=== PATIENT | female | born 1965 | race Caucasian/White ===

== ENCOUNTER 2025-05-15 10:57 | Emergency (ER) | payer BC, SELFPAY ==
[2025-05-15 11:01] VITALS: BP 113/68
[2025-05-15] MEDS: TYLENOL 1000 MG PO (12:32)
--- NOTE | 2025-05-15 13:29 | ED.MUSCINJ ---
HPI-Injury
General
Chief Complaint: Musculo-Skeletal Complaint
Source: patient
Exam Limitations: none
Time Seen by Provider: 05/15/25 11:41
Nursing documentation reviewed up to this point in time: agreed with
History of Present Illness-Injury
Initial Injury comments:
60-year-old female with no significant past medical history states she fell off her horse within the past few hours injuring her left wrist. She denies head injury or any other injury.
Past History
Past History
ED Past Medical History: GERD
ED Past Surgical History: None
Social History
Tobacco: Non-smoker
Alcohol: Occasional
Personal:
Living: with family
Employment: Not employed
Family History
Family History: Other (Noncontributory)
Review of Systems
Review of Systems
Allergies reviewed?: Yes
All Other Systems: ROS reviewed and negative except as documented in HPI and ROS
Musculoskeletal: Reports other (Left wrist pain)
Musculoskeletal Injury Exam
Musculoskeletal Injury Exam
Left Wrist:
Pain with Movement?: Moderate
Tender to palpation?: Moderate
Soft tissue swelling?: Mild
External deformity and angulation?: None
Strain- Sprain- Tear (Connective tissue injury)?: Moderate
Crepitus with movement?: No
Joint instability?: No
Malalignment/deformity?: No
Range of motion: Limited
Distal skin color and temperature: normal-warm & good color
Capillary Refill: normal
Normal distal neurovascular exam?: Yes
Peripheral Pulses: brachial (left): 2+ and radial (left): 2+
Phy Exam
Physical Exam
Physical Exam:
PHYSICAL EXAMINATION:
General: no apparent distress, not acutely ill
Neuro: alert and oriented.
Psychiatric: well kept. interactive and cooperative
Musculoskeletal: Moves with ease
Skin: Warm, pink.
Injury Course
Orders/Labs/Results
Orders:
Orders
05/15/25 11:03
Wrist, Left 3 Views CR [CR Wrist - Left Min 3 Views] Urgent
Comment:
Reason For Exam: pain
05/15/25 12:25
Acetaminophen [Tylenol] 1,000 mg PO NOW STA
05/15/25 12:28
Volar Left-Treatment ONCE
05/15/25 12:42
Sling Left-Treatment ONCE
Procedures
Splint Check
Splint checked by provider?: Yes
Circulation/Movement/Sensation post splint application: brisk cap refill and full sensation
MDM/Problems Addressed
MDM/Problems Addressed:
60-year-old female with no significant past medical history states she fell off her horse within the past few hours injuring her left wrist. She denies head injury or an
X-ray left wrist initially read by this examiner: Transverse fracture through the distal radius, ulnar styloid avulsion fracture.
Splint and sling applied, distal neurovascular intact afterwards
Referred to orthopedics
*Pulse Oximetry
SaO2: 99
Oxygen Mode of Delivery: Room air
Patient hypoxic: not evaluated
*Critical Care Note
Total Time (30-74mins, 75-104mins- exclusive of procedures): Not Applicable
ED Attending Note
-
Portions of this chart may have been created with voice recognition software.� Occasional wrong word or��sound alike� substitutions may have occurred due to the inherent limitations of voice recognition software.
Discharge Plan
Departure
Patient Disposition: Home (Routine Discharge)
Date of Disposition: 05/15/25
Time of Disposition: 12:28
Patient with high blood pressure during this ER visit?: No
Condition: Good
Discharge Problem:
Fall from horse, Fracture of left wrist
Instructions: Wrist Fracture (DC), Using Cold for Pain
Prescriptions:
No Action
prednisone 10 mg Tablet
See Rx Instructions .ROUTE .COMPLEX Qty: 30 0RF
Rx Instructions:
Take By Mouth:
40 mg daily x3 days, 30 mg daily x3 days,
20 mg daily x3 days, 10 mg daily x3 days.
albuterol sulfate [ProAir HFA] 90 mcg/actuation Hfa Aerosol Inhaler
2 puff INHALATION Q4HPRN PRN (Reason: shortness of breath/cough) Qty: 90 0RF
Rx Instructions:
Dispense with spacer
Referrals:
Jean Carlos Gallegos MD [Active, Orthopedics] - Call in 1-3 days for appt
Tigist Ruth DO [Family Provider, Family Practice]
Activity Restrictions/Additional Instructions:
As we discussed, leave the splint on until you see the orthopedic doctor. Rest with the hand elevated to the level of your heart or slightly higher as much as you can in the next 2 days to minimize swelling. Cold compress to the area 20 minutes
off and on today and tomorrow is much as you can.
Tylenol 1000 mg every 8 hours as needed for pain.
Call the orthopedic doctors office tomorrow and make next available appointment.
Interventions
Interventions:
*Risk Screen - Suicide Last Done: 05/15/25 11:01
*General Assessment Last Done: 05/15/25 11:01
*Neglect/Abuse Screening Last Done: 05/15/25 11:01
*Nursing Disposition Last Done: 05/15/25 12:55
ED-Musculoskeletal Assessment Last Done: 05/15/25 11:27
Discharge Date and Time
Discharge Date/Time: 05/15/25 12:56
Print Language: [id number]
== END 2025-05-15 12:56 | disposition home or self-care (01) ==
LOC: EMR 10:57
PROVIDERS: EMERGENCY PHYSICIAN Emergency Medicine; FAMILY PHYSICIAN Family Medicine
DX: S52.592A Other fractures of lower end of left radius, initial encounter for closed fracture (principal); S52.612A Displaced fracture of left ulna styloid process, initial encounter for closed fracture; V80.010A Animal-rider injured by fall from or being thrown from horse in noncollision accident, initial encounter; K21.9 Gastro-esophageal reflux disease without esophagitis
CPT/HCPCS: 99283; 29125; 73110